=== PATIENT | female | born 1950 | race Caucasian/White ===

== ENCOUNTER 2019-10-01 11:38 | Emergency (ER) | payer MEDICARE, OTHER, SELFPAY ==
[2019-10-01 11:53] VITALS: BP 196/83; PULSE 84; RESP 13; TEMP 36.8; O2SAT 99
--- NOTE | 2019-10-01 12:27 | ED_ITS ---
HPI - General Adult <DOLORES Mancini - Last Filed: 10/01/19 22:01> General Chief complaint: Hypertension Stated complaint: HIGH BLOOD PRESSURE 186 Time Seen by Provider: 10/01/19 12:11 Source: patient Mode of arrival: Ambulatory Limitations: no limitations History of Present Illness HPI narrative: This is a pleasant 68-year-old female, nonsmoker, who presents to ED with elevated blood pressure. She reports she felt head pressure, shuttering feeling in my heart for last few days and decided to monitor her blood pressure. This morning BP was 180s/90s. She denies chest pain, weakness to limbs, speech difficulty, numbness, palpitation, history of AFib, breathing difficulty, or vision change. Patient takes amlodipine 5 mg and Synthroid 150 mcg daily. Patient reports similar symptoms had happened in the past. Patient currently states feels good now once arrived in emergency room and noticed on the monitor her blood pressures in 150s over 60s. Related Data Home Medications Medication Instructions Recorded Confirmed amlodipine 5 mg PO DAILY 10/01/19 10/01/19 levothyroxine [Synthroid] 150 mcg PO DAILY 10/01/19 10/01/19 Allergies Allergy/AdvReac Type Severity Reaction Status Date / Time anti inflammatory Allergy Unknown Uncoded 10/01/19 12:08 Review of Systems <DOLORES Mancini - Last Filed: 10/01/19 22:01> Review of Systems Narrative: General: Denies fever, chills, fatigue, malaise, sweats. HEENT: Denies sinus pain, ear pain, sore throat, difficulty swallowing, dizziness. Respiratory: Denies dyspnea, cough, wheezing, hemoptysis, sputum. Cardiovascular: See HPI Gastrointestinal: Denies nausea, vomiting, abdominal pain, diarrhea, constipation, melena. : Denies dysuria, frequency, incontinence, hematuria, urinary retention. Musculoskeletal: Denies weakness, joint pain or bony pain. Skin: Denies rash, skin lesions, or other. Neurologic: See HPI Psychiatric: No concerning psychosocial issues. 12-point review of systems is negative except for those stated above. Patient History <DOLORES Mancini - Last Filed: 10/01/19 22:01> Medical History Graves disease (Acute) Surgical History H/O hysterectomy with oophorectomy (Acute) History of foot surgery (Acute) Social History Smoking Status: Never smoker alcohol intake frequency: a few times a week Alcohol type: wine Substance Use Type: does not use Exam <DOLORES Mancini - Last Filed: 10/01/19 22:01> Narrative Exam Narrative: GEN: Alert, oriented x 3, well appearing and nourished, and in no acute distress. Head: Normal cephalic, atraumatic. No scalp or temporal tenderness, palpable mass or rash. EYES: Pupils are equal, round, and reactive to light and accommodation. Extr aocular muscles are intact bilaterally. There is no subconjunctival hemorrhage, exudate and sclera non-icteric. ENT: Bilateral auditory canals and tympanic membranes clear. Hearing grossly intact. Nose without bleeding, purulent discharge, septal hematoma or deviation. Turbinate without erythema or swelling. Facial sinuses nontender to palpate. Mucous membrane moist, no mucosal lesion. Throat without erythema, tonsillar hypertrophy or exudate. Uvula in midline, airway patent. Neck: Trachea in midline. No JVD, non-tender without lymphadenopathy. No masses or thyroid megaly. Supple, non-tender and no meningeal signs. CARDIAC: Normal regular rate and rhythm without murmurs, gallops, or rubs. No chest wall tenderness. No peripheral edema, cyanosis or pallor. Capillary refill is less than 2 seconds. No carotid bruits. RESPIRATORY: Lungs are cleat to auscultate bilaterally. No cough, wheezes, rales, or rhonchi. No stridor, respiratory distress, increase work of breathing, or accessary muscle used. ABD: Abdomen soft, nontender and non-distended. No guarding or rebound tenderness to palpate. Bowel sounds are normal in all 4 quadrants. There is no palpable masses or organomegaly. EXT: Full painless ROM of all extremities with no loss of sensation, strength, effusion or edema. SKIN: Warm, dry, normal color for patient. No erythema, lesions or rash. BACK: Nontender without deformity or crepitance. No flank tenderness. NEUROLOGICAL: Alert and oriented to place, time and person. No facial droops, dysphasia. CN II-XII intact. Strength and sensation symmetric and intact throughout. Cerebellar testing normal. PSYCHIATRIC: Good judgement and reason, without hallucinations, abnormal affect or abnormal behaviors during the examination. Initial Vital Signs Initial Vital Signs: Vital Signs Temperature 98.3 F 10/01/19 11:53 Pulse Rate 84 10/01/19 11:53 Respiratory Rate 13 10/01/19 11:53 Blood Pressure 196/83 H 10/01/19 11:53 Pulse Oximetry 99 10/01/19 11:53 <Samaria Mccray DO - Last Filed: 10/02/19 07:11> Initial Vital Signs Initial Vital Signs: Vital Signs Temperature 98.3 F 10/01/19 11:53 Pulse Rate 84 10/01/19 11:53 Respiratory Rate 13 10/01/19 11:53 Blood Pressure 196/83 H 10/01/19 11:53 Pulse Oximetry 99 10/01/19 11:53 Scores <DOLORES Mancini - Last Filed: 10/01/19 22:01> GCS Jared coma scale eye opening: Spontaneous [place] coma scale verbal response: Orientated Jared coma scale motor response: Obey commands [place] coma scale total score: 15 NIH Stroke Scale Level of Conciousness: Alert, keenly responsive Ask month/age: Answers both questions correctly. Open/close eyes, close hand: Performs both tasks correctly Best gaze horizontal: Normal Visual garcia: No visual loss Facial palsy: Normal symetrical movement Left arm drift: No drift for full 10 sec Right arm drift: No drift for full 10 sec Left leg drift: No drift for full 10 sec Right leg drift: No drift for full 10 sec Limb ataxia: Absent Sensory on face/arms/legs: Normal, no sensory loss Best language: No aphasia, normal Dysarthria: Normal Extinction or inattention: No abnormality Total NIH Stroke scale score: 0 Course <DOLORES Mancini - Last Filed: 10/01/19 22:01> Orders Ordered: ED Orders 10/01/19 12:25 Complete Blood Count AUTO DIFF Stat Comprehensive Metabolic Panel Stat Thyroid Stimulating Hormone Stat Troponin & CK Cardiac Panel Stat Vital Signs Vital signs: Vital Signs - 8 hr 10/01/19 11:53 Temperature 98.3 F Pulse Rate 84 Respiratory Rate 13 Blood Pressure 196/83 H Pulse Oximetry 99 <Samaira Mccray DO - Last Filed: 10/02/19 07:11> Orders Ordered: ED Orders 10/01/19 12:25 Complete Blood Count AUTO DIFF Stat Comprehensive Metabolic Panel Stat Thyroid Stimulating Hormone Stat Troponin & CK Cardiac Panel Stat Vital Signs Vital signs: Vital Signs - 8 hr 10/01/19 11:53 Temperature 98.3 F Pulse Rate 84 Respiratory Rate 13 Blood Pressure 196/83 H Pulse Oximetry 99 Medical Decision Making <Delvin Hill DOLORES - Last Filed: 10/01/19 22:01> Differential Diagnosis Differential Diagnosis: Elevated blood pressure, NSTEMI, Afib, Hyperthyroidism Medical Records Medical records reviewed: Yes I reviewed the patient's medical records. Lab Data Lab results reviewed: Yes I reviewed the patient's lab results. Result diagrams: 10/01/19 12:39 10/01/19 12:39 Labs: Lab Results 10/01/19 10/01/19 10/01/19 Range/Units 12:39 12:39 12:39 WBC 5.0 (4.5-11.0) X10^3/uL RBC 4.69 (4.0-5.2) X10^6/uL Hgb 14.0 (12.0-16.0) g/dL Hct 41.2 (36-46) % MCV 87.9 (80-100) fL MCH 29.9 (26-34) PG MCHC 34.0 (30-36) % RDW 13.9 (11.6-14.8) % Plt Count 162 (150-400) X10^3/uL Neut % (Auto) 65.4 (50-75) % Lymph % (Auto) 27.5 (25-40) % [place] % (Auto) 5.2 (3-14) % Eos % (Auto) 1.4 L (2-4) % Baso % (Auto) 0.5 (0-2) % Neut # (Auto) 3200 (3642-3201) /uL Lymph # (Auto) 1400 (2116-9504) /uL [place] # (Auto) 300 (0-900) /uL Eos # (Auto) 100 (0-450) /uL Baso # (Auto) 0 (0-100) /uL Sodium 142 (137-145) mmol/L Potassium 4.5 (3.4-5.1) mmol/L Chloride 106 (98-107) mmol/L Carbon Dioxide 27 (22-32) mmol/L BUN 15 (7-17) mg/dL Creatinine 0.60 (0.52-1.04) mg/dL Estimated GFR > 60.0 (>60) mL/min BUN/Creatinine Ratio 25.0 H (6-22) Glucose 110 (80-110) mg/dL Calcium 9.8 (8.4-10.2) mg/dL Magnesium (1.6-2.3) mg/dL Total Bilirubin 0.5 (0.2-1.3) mg/dL AST 28 (14-36) IU/L ALT 18 (<35) IU/L Alkaline Phosphatase 66 (38-126) U/L Total Creatine Kinase 109 (30-135) U/L CK-MB (CK-2) 1.03 (<2.37) ng/mL CK-MB (CK-2) Rel Index 0.9 L (1.5-5.0) % Troponin I < 0.012 (0.01-0.034) ng/mL Total Protein 7.5 (6.3-8.2) g/dL Albumin 4.7 (3.5-5.0) g/dL Globulin 2.8 (1.7-4.1) g/dL Albumin/Globulin Ratio 1.7 (1.0-2.8) TSH 0.88 (0.47-4.68) uIU/mL 10/01/19 Range/Units 12:39 WBC (4.5-11.0) X10^3/uL RBC (4.0-5.2) X10^6/uL Hgb (12.0-16.0) g/dL Hct (36-46) % MCV (80-100) fL MCH (26-34) PG MCHC (30-36) % RDW (11.6-14.8) % Plt Count (150-400) X10^3/uL Neut % (Auto) (50-75) % Lymph % (Auto) (25-40) % [place] % (Auto) (3-14) % Eos % (Auto) (2-4) % Baso % (Auto) (0-2) % Neut # (Auto) (3361-1463) /uL Lymph # (Auto) (9123-8526) /uL [place] # (Auto) (0-900) /uL Eos # (Auto) (0-450) /uL Baso # (Auto) (0-100) /uL Sodium (137-145) mmol/L Potassium (3.4-5.1) mmol/L Chloride (98-107) mmol/L Carbon Dioxide (22-32) mmol/L BUN (7-17) mg/dL Creatinine (0.52-1.04) mg/dL Estimated GFR (>60) mL/min BUN/Creatinine Ratio (6-22) Glucose (80-110) mg/dL Calcium (8.4-10.2) mg/dL Magnesium 2.3 (1.6-2.3) mg/dL Total Bilirubin (0.2-1.3) mg/dL AST (14-36) IU/L ALT (<35) IU/L Alkaline Phosphatase (38-126) U/L Total Creatine Kinase (30-135) U/L CK-MB (CK-2) (<2.37) ng/mL CK-MB (CK-2) Rel Index (1.5-5.0) % Troponin I (0.01-0.034) ng/mL Total Protein (6.3-8.2) g/dL Albumin (3.5-5.0) g/dL Globulin (1.7-4.1) g/dL Albumin/Globulin Ratio (1.0-2.8) TSH (0.47-4.68) uIU/mL ECG Data Attestation: I personally reviewed and interpreted this ECG as follows: Prior ECG tracings: not available for review Interpretation: Sinus rhythm rate at 70. Normal Model. Possible right ventricular conduction delay in V1 and V2. No ST elevation or depression. MDM Narrative Medical decision making narrative: This is a pleasant 68-year-old female who presents to ED who has known history of HTN and has been compliant with Amlodipine 5 mg daily with symptomatic high blood pressure this a.m. but had resolved after she arrived in ED. EKG was NS rate in 70. Cardiac enzymes were negative. Unremarkable CBC, unremarkable chemistry with low-normal magnesium level of 2.3. Normal TSH of was 0.88. The patient's blood pressure had improved while in ED as 132/70 with no symptoms without additional medication intervention. Findings were discussed with the patient and patient advised to follow with her primary care physician and to monitor her blood pressure regularly at the same time if elevated blood pressure persists. Return precautions were discussed with the patient. Patient verbalized understanding and agrees with the treatment plan. <Samaria Mccray, - Last Filed: 10/02/19 07:11> Lab Data Labs: Lab Results 10/01/19 10/01/19 10/01/19 Range/Units 12:39 12:39 12:39 WBC 5.0 (4.5-11.0) X10^3/uL RBC 4.69 (4.0-5.2) X10^6/uL Hgb 14.0 (12.0-16.0) g/dL Hct 41.2 (36-46) % MCV 87.9 (80-100) fL MCH 29.9 (26-34) PG MCHC 34.0 (30-36) % RDW 13.9 (11.6-14.8) % Plt Count 162 (150-400) X10^3/uL Neut % (Auto) 65.4 (50-75) % Lymph % (Auto) 27.5 (25-40) % [place] % (Auto) 5.2 (3-14) % Eos % (Auto) 1.4 L (2-4) % Baso % (Auto) 0.5 (0-2) % Neut # (Auto) 3200 (3823-6234) /uL Lymph # (Auto) 1400 (4181-2602) /uL [place] # (Auto) 300 (0-900) /uL Eos # (Auto) 100 (0-450) /uL Baso # (Auto) 0 (0-100) /uL Sodium 142 (137-145) mmol/L Potassium 4.5 (3.4-5.1) mmol/L Chloride 106 (98-107) mmol/L Carbon Dioxide 27 (22-32) mmol/L BUN 15 (7-17) mg/dL Creatinine 0.60 (0.52-1.04) mg/dL Estimated GFR > 60.0 (>60) mL/min BUN/Creatinine Ratio 25.0 H (6-22) Glucose 110 (80-110) mg/dL Calcium 9.8 (8.4-10.2) mg/dL Magnesium (1.6-2.3) mg/dL Total Bilirubin 0.5 (0.2-1.3) mg/dL AST 28 (14-36) IU/L ALT 18 (<35) IU/L Alkaline Phosphatase 66 (38-126) U/L Total Creatine Kinase 109 (30-135) U/L CK-MB (CK-2) 1.03 (<2.37) ng/mL CK-MB (CK-2) Rel Index 0.9 L (1.5-5.0) % Troponin I < 0.012 (0.01-0.034) ng/mL Total Protein 7.5 (6.3-8.2) g/dL Albumin 4.7 (3.5-5.0) g/dL Globulin 2.8 (1.7-4.1) g/dL Albumin/Globulin Ratio 1.7 (1.0-2.8) TSH 0.88 (0.47-4.68) uIU/mL 10/01/19 Range/Units 12:39 WBC (4.5-11.0) X10^3/uL RBC (4.0-5.2) X10^6/uL Hgb (12.0-16.0) g/dL Hct (36-46) % MCV (80-100) fL MCH (26-34) PG MCHC (30-36) % RDW (11.6-14.8) % Plt Count (150-400) X10^3/uL Neut % (Auto) (50-75) % Lymph % (Auto) (25-40) % [place] % (Auto) (3-14) % Eos % (Auto) (2-4) % Baso % (Auto) (0-2) % Neut # (Auto) (1484-8050) /uL Lymph # (Auto) (5098-7023) /uL [place] # (Auto) (0-900) /uL Eos # (Auto) (0-450) /uL Baso # (Auto) (0-100) /uL Sodium (137-145) mmol/L Potassium (3.4-5.1) mmol/L Chloride (98-107) mmol/L Carbon Dioxide (22-32) mmol/L BUN (7-17) mg/dL Creatinine (0.52-1.04) mg/dL Estimated GFR (>60) mL/min BUN/Creatinine Ratio (6-22) Glucose (80-110) mg/dL Calcium (8.4-10.2) mg/dL Magnesium 2.3 (1.6-2.3) mg/dL Total Bilirubin (0.2-1.3) mg/dL AST (14-36) IU/L ALT (<35) IU/L Alkaline Phosphatase (38-126) U/L Total Creatine Kinase (30-135) U/L CK-MB (CK-2) (<2.37) ng/mL CK-MB (CK-2) Rel Index (1.5-5.0) % Troponin I (0.01-0.034) ng/mL Total Protein (6.3-8.2) g/dL Albumin (3.5-5.0) g/dL Globulin (1.7-4.1) g/dL Albumin/Globulin Ratio (1.0-2.8) TSH (0.47-4.68) uIU/mL Discharge Plan Departure Patient Disposition: Home Clinical Impression: Hypertension Qualifiers: Hypertension type: unspecified Qualified Code(s): I10 - Essential (primary) hypertension Discharge Date/Time: 10/01/19 14:05 Instructions: DI for High Blood Pressure Activity Restrictions/Additional Instructions: You have been diagnosed with [resolved high blood pressure with symptoms as head pressure. The blood pressure decreased to 130s over 60s while in the ED. Her EKG looks good. Lab tests are unremarkable including cardiac enzymes, TSH, CBC, chemistry. Your magnesium is low borderline.]. What to do: *Take your medications as directed. Please continue with your daily blood pressure medication regimen *Follow up with your primary care provider in 2-3 days, call for an appointment. Let them know you were seen in the ED and that we asked you to be seen in follow up. *Return to ED if you have any new, worsening, or concerning symptoms, such as [chest pain, breathing difficulty, limb weakness, nausea vomiting, vision change, speech difficulty, balance problem, or any acute concerns]. Prescriptions: No Action amlodipine 5 mg tablet 5 mg PO DAILY RF: 0 levothyroxine [Synthroid] 150 mcg tablet 150 mcg PO DAILY RF: 0 Referrals: Maikel Powell DO [Non-Staff] -
[2019-10-01 12:30] VITALS: BP 157/74; PULSE 73; RESP 17; O2SAT 98
[2019-10-01 12:51] LABS: Add Manual Diff / Slide Review NO; Basophils Absolute Auto 0 /uL (0-100); Basophils Percent Auto 0.5 % (0-2); Eosinophils Absolute Auto 100 /uL (0-450); Eosinophils Percent Auto 1.4 % (2-4); Hematocrit 41.2 % (36-46); Lymphocytes Absolute Auto 1400 /uL (1100-4500); Lymphocytes Percent Auto 27.5 % (25-40); Mean Corpuscular Hemoglobin 29.9 PG (26-34); Mean Corpuscular Volume 87.9 fL (80-100); Monocytes Absolute Auto 300 /uL (0-900); Monocytes Percent Auto 5.2 % (3-14); Neutrophils Absolute Auto 3200 /uL (1500-7000); Neutrophils Percent Auto 65.4 % (50-75); Platelet Count 162 X10^3/uL (150-400); Red Blood Cell Count 4.69 X10^6/uL (4.0-5.2); Red Cell Distribution Width 13.9 % (11.6-14.8)
[2019-10-01 13:00] VITALS: BP 132/70; PULSE 67; RESP 17; O2SAT 98
[2019-10-01 13:06] LABS: Alanine Aminotransferase 18 IU/L (<35); Albumin 4.7 g/dL (3.5-5.0); Albumin Globulin Ratio 1.7 (1.0-2.8); Alkaline Phosphatase 66 U/L (38-126); Aspartate Aminotransferase 28 IU/L (14-36); Bilirubin Total 0.5 mg/dL (0.2-1.3); Blood Urea Nitrogen 15 mg/dL (7-17); Calcium 9.8 mg/dL (8.4-10.2); Carbon Dioxide 27 mmol/L (22-32); Chloride 106 mmol/L (98-107); Creatine Kinase 109 U/L (30-135); Estimated Glomerular Filt Rate > 60.0 mL/min (>60); Globulin 2.8 g/dL (1.7-4.1); Glucose 110 mg/dL (80-110); HEMOLYSIS < 15 (0-50); Potassium 4.5 mmol/L (3.4-5.1); Sodium 142 mmol/L (137-145); Total Protein 7.5 g/dL (6.3-8.2)
[2019-10-01 13:07] LABS: Magnesium 2.3 mg/dL (1.6-2.3)
[2019-10-01 13:17] LABS: Troponin I < 0.012 ng/mL (0.01-0.034)
[2019-10-01 13:30] VITALS: BP 140/59; PULSE 67; RESP 18; O2SAT 97
[2019-10-01 13:33] LABS: CKMB % Relative Index 0.9 % (1.5-5.0); Creatine Kinase MB 1.03 ng/mL (<2.37)
[2019-10-01 13:42] LABS: Thyroid Stimulating Hormone 0.88 uIU/mL (0.47-4.68)
== END 2019-10-01 14:05 | disposition home or self-care (01) ==
PROVIDERS: Emergency Provider Nurse Practitioner Family; Family Provider Family Medicine; PCP Family Medicine
DX: I10 Essential (primary) hypertension (principal)
CPT/HCPCS: 36415; 80053; 82550; 82553; 83735; 84443; 84484; 85025; 93005; 93010; 99283; 99284

== ENCOUNTER 2024-03-06 21:07 | Emergency (ER) | payer MEDICARE, OTHER, SELFPAY ==
[2024-03-06 21:11] VITALS: BP 208/100; PULSE 80; RESP 18; TEMP 36.4; O2SAT 100; BMI 25.2
--- NOTE | 2024-03-06 21:15 | DI.RAD.S_ITS ---
PROCEDURE: XR CHEST 1V INDICATIONS: chest pain TECHNIQUE: One view of the chest was acquired. COMPARISON: None. FINDINGS: Surgical changes and devices: None. Lungs and pleura: Lungs are clear. Lungs are lucent compatible with emphysema. No pleural effusions or pneumothorax. Mediastinum: Mediastinal contours appear normal. Heart size is normal. Bones and chest wall: No suspicious bony lesions. Overlying soft tissues appear unremarkable. IMPRESSION: No acute cardiopulmonary abnormality is seen. Dictated by: Adams Rowell M.D. on 03/06/2024 at 22:41 Approved by: Adams Rowell M.D. on 03/06/2024 at 22:41
[2024-03-06] MEDS: ASPIRIN 81 MG CHEW TAB 324 MG PO (21:20)
[2024-03-06 21:30] LABS: Add Manual Diff / Slide Review NO; Basophils Absolute Auto 0 /uL (0-100); Basophils Percent Auto 0.7 % (0-2); Eosinophils Absolute Auto 100 /uL (0-450); Hematocrit 39.1 % (36-46); Hemoglobin 13.2 g/dL (12.0-16.0); Lymphocytes Absolute Auto 2000 /uL (1100-4500); Lymphocytes Percent Auto 31.9 % (25-40); Mean Corpuscular HGB Conc 33.9 % (30-36); Mean Corpuscular Hemoglobin 29.3 PG (26-34); Mean Corpuscular Volume 86.6 fL (80-100); Monocytes Absolute Auto 400 /uL (0-900); Monocytes Percent Auto 6.8 % (3-14); Neutrophils Absolute Auto 3700 /uL (1500-7000); Neutrophils Percent Auto 58.6 % (50-75); Platelet Count 167 X10^3/uL (150-400); Red Blood Cell Count 4.51 X10^6/uL (4.0-5.2); Red Cell Distribution Width 13.9 % (11.6-14.8); White Blood Cell Count 6.3 X10^3/uL (4.5-11.0)
[2024-03-06 21:31] VITALS: PULSE 73; RESP 27
[2024-03-06 21:33] VITALS: BP 190/98; PULSE 77; RESP 17; O2SAT 98
--- NOTE | 2024-03-06 21:40 | ED.ARRPALP ---
HPI - Arrhythmia/Palpitations General Chief Complaint: Arrhythmia/Palpitations Stated Complaint: states heart is acting funkey Time Seen by Provider: 03/06/24 21:24 Source: patient Mode of arrival: Ambulatory History of Present Illness HPI narrative: Patient is a 73-year-old female is here for evaluation of palpitations. She states she has been feeling ill for the past 24-36 hours. No chest pain. No shortness of breath. No lightheadedness. She has a history of hypertension and has been off of her hypertensive medicines she was trying to control her high blood pressure by diet changes. She denies any lower extremity swelling. No abdominal pain or nausea or vomiting. Related Data Home Medications Medication Instructions Recorded Confirmed levothyroxine 150 mcg tablet 150 mcg PO DAILY 10/01/19 10/01/19 (Synthroid) Allergies Allergy/AdvReac Type Severity Reaction Status Date / Time anti inflammatory Allergy Unknown Uncoded 10/01/19 12:08 Review of Systems Review of Systems ROS Unobtainable: All systems reviewed & are unremarkable except as noted in HPI and below Patient History Medical History Graves disease Surgical History History of foot surgery H/O hysterectomy with oophorectomy Social History Smoking Status: Never smoker Smoking Status: Never smoker alcohol intake frequency: a few times a week Alcohol type: wine Substance Use Type: does not use Exam Initial Vital Signs Initial Vital Signs: Vital Signs Temperature 97.5 F L 03/06/24 21:11 Pulse Rate 80 03/06/24 21:11 Respiratory Rate 18 03/06/24 21:11 Blood Pressure 208/100 H 03/06/24 21:11 Pulse Oximetry 100 03/06/24 21:11 Oxygen Delivery Method Room Air 03/06/24 21:11 Const General: cooperative, comfortable and No ill appearing HENMT Head: normal to inspection and normocephalic Resp Effort & Inspection: normal respiratory effort Auscultation: clear to auscultation bilaterally Cardio Rate: regular rate Rhythm: regular rhythm Skin General: no rashes or lesions noted Neuro General: patient alert, patient awake, patient oriented x3 and moves all extremities Speech: speech normal Extrem General: normal to inspection and capillary refill normal Course Orders Ordered: ED Orders 03/06/24 21:15 XR chest 1V Stat EKG-12 Lead Stat 03/06/24 21:25 Complete Blood Count AUTO DIFF Stat Comprehensive Metabolic Panel Stat Lipase Stat Magnesium Stat PTT Partial Thromboplastin Rah Stat Prothrombin Time INR Stat Troponin & CK Cardiac Panel Stat Discontinued Medications Aspirin (Aspirin 81 Mg Chew Tab) 324 mg PO NOW ONE Stop: 03/06/24 21:16 Last Admin: 03/06/24 21:20 Dose: 324 mg Documented By: AB Vital Signs Vital signs: Vital Signs - 8 hr 03/06/24 21:11 03/06/24 21:31 03/06/24 21:33 Temperature 97.5 F L Pulse Rate 80 73 Respiratory Rate 18 27 H Blood Pressure 208/100 H 190/98 H Pulse Oximetry 100 Oxygen Delivery Method Room Air 03/06/24 21:33 03/06/24 22:00 03/06/24 22:00 Temperature Pulse Rate 77 71 Respiratory Rate 17 17 Blood Pressure 164/84 H Pulse Oximetry 98 98 Oxygen Delivery Method Room Air Room Air 03/06/24 22:30 03/06/24 22:31 03/06/24 22:31 Temperature Pulse Rate 62 61 Respiratory Rate 18 28 H Blood Pressure 167/78 H Pulse Oximetry 96 Oxygen Delivery Method Room Air MDM - Arrhythmia/Palpitations Lab Data Attestation: I reviewed the patient's lab results. 03/06/24 21:25 03/06/24 21:25 Labs: Lab Results 03/06/24 Range/Units 21:25 WBC 6.3 (4.5-11.0) X10^3/uL RBC 4.51 (4.0-5.2) X10^6/uL Hgb 13.2 (12.0-16.0) g/dL Hct 39.1 (36-46) % MCV 86.6 (80-100) fL MCH 29.3 (26-34) PG MCHC 33.9 (30-36) % RDW 13.9 (11.6-14.8) % Plt Count 167 (150-400) X10^3/uL Neut % (Auto) 58.6 (50-75) % Lymph % (Auto) 31.9 (25-40) % [place] % (Auto) 6.8 (3-14) % Eos % (Auto) 2.0 (2-4) % Baso % (Auto) 0.7 (0-2) % Neut # (Auto) 3700 (0216-4061) /uL Lymph # (Auto) 2000 (0368-8385) /uL [place] # (Auto) 400 (0-900) /uL Eos # (Auto) 100 (0-450) /uL Baso # (Auto) 0 (0-100) /uL PT 10.9 (9.4-12.5) SECONDS INR 1.0 (0.9-1.3) APTT 43 H (25.1-36.5) SECONDS Sodium 141 (137-145) mmol/L Potassium 3.6 (3.4-5.1) mmol/L Chloride 108 H (98-107) mmol/L Carbon Dioxide 28 (22-32) mmol/L BUN 19 H (7-17) mg/dL Creatinine 0.76 (0.52-1.04) mg/dL Estimated GFR > 60 (>60) mL/min BUN/Creatinine Ratio 25.0 H (6-22) Glucose 151 H (80-110) mg/dL Calcium 9.8 (8.4-10.2) mg/dL Magnesium 2.3 (1.6-2.3) mg/dL Total Bilirubin 0.4 (0.2-1.3) mg/dL AST 27 (14-36) IU/L ALT 17 (<35) IU/L Alkaline Phosphatase 68 (38-126) U/L Total Creatine Kinase 266 H (30-135) U/L Troponin I < 0.012 (0.01-0.034) ng/mL Total Protein 7.4 (6.3-8.2) g/dL Albumin 4.3 (3.5-5.0) g/dL Globulin 3.1 (1.7-4.1) g/dL Albumin/Globulin Ratio 1.4 (1.0-2.8) Lipase 104 (23-300) U/L Imaging Data Chest x-ray: Radiologist's Impresson: PROCEDURE: XR CHEST 1V INDICATIONS: chest pain TECHNIQUE: One view of the chest was acquired. COMPARISON: None. FINDINGS: Surgical changes and devices: None. Lungs and pleura: Lungs are clear. Lungs are lucent compatible with emphysema. No pleural effusions or pneumothorax. Mediastinum: Mediastinal contours appear normal. Heart size is normal. Bones and chest wall: No suspicious bony lesions. Overlying soft tissues appear unremarkable. IMPRESSION: No acute cardiopulmonary abnormality is seen. ECG Data Attestation: I personally reviewed and interpreted this ECG as follows: Interpretation: Sinus rhythm Ventricular rate of 74 Normal axis Normal QRS Normal QTC No ST T wave changes MDM Narrative Medical decision making narrative: Patient was sinus rhythm on the EKG however on the monitors she was having frequent PACs which does correspond to the symptoms that brought her here to the ER. She denies chest pain or shortness of breath. Chest x-ray is unremarkable. I did discuss these with her. She had prefer not to take any medications. Advised that she talk with her primary doctor about the indications for a Holter monitor to completely evaluate any other potential arrhythmias. Patient is safe for discharge home. She was given specific return precautions. She expressed understanding and agreement. Discharge Plan Departure Patient Disposition: Home Clinical Impression: Atrial premature contractions Instructions: DI for Palpitations Activity Restrictions/Additional Instructions: Continue to take all of your medications as directed. I do recommend that you contact your primary doctor for a follow-up to discuss the indications for a Holter monitor. Return to the emergency department for new or worsening symptoms. Prescriptions: No Action levothyroxine [Synthroid] 150 mcg tablet 150 mcg PO DAILY Referrals: Chiki Harding MD [Primary Care Provider] - Stand Alone Forms: Patient Portal/API
[2024-03-06 21:50] LABS: Prothrombin Time 10.9 SECONDS (9.4-12.5)
[2024-03-06 21:53] LABS: PTT Partial Thromboplastin Tim 43 SECONDS (25.1-36.5)
[2024-03-06 21:55] LABS: Alanine Aminotransferase 17 IU/L (<35); Albumin 4.3 g/dL (3.5-5.0); Albumin Globulin Ratio 1.4 (1.0-2.8); Alkaline Phosphatase 68 U/L (38-126); Aspartate Aminotransferase 27 IU/L (14-36); Bilirubin Total 0.4 mg/dL (0.2-1.3); Blood Urea Nitrogen 19 mg/dL (7-17); Calcium 9.8 mg/dL (8.4-10.2); Carbon Dioxide 28 mmol/L (22-32); Chloride 108 mmol/L (98-107); Creatine Kinase 266 U/L (30-135); Estimated Glomerular Filt Rate > 60 mL/min (>60); Globulin 3.1 g/dL (1.7-4.1); Glucose 151 mg/dL (80-110); HEMOLYSIS 24 (0-50); Lipase 104 U/L (23-300); Magnesium 2.3 mg/dL (1.6-2.3); Potassium 3.6 mmol/L (3.4-5.1); Sodium 141 mmol/L (137-145); Total Protein 7.4 g/dL (6.3-8.2)
[2024-03-06 22:00] VITALS: BP 164/84; PULSE 71; RESP 17; O2SAT 98
[2024-03-06 22:06] LABS: Troponin I < 0.012 ng/mL (0.01-0.034)
[2024-03-06 22:30] VITALS: PULSE 62; RESP 18; O2SAT 96
[2024-03-06 22:31] VITALS: BP 167/78; PULSE 61; RESP 28
== END 2024-03-06 22:35 | disposition home or self-care (01) ==
PROVIDERS: Emergency Provider Emergency Medicine; Family Provider Family Medicine; PCP Family Medicine
DX: I49.1 Atrial premature depolarization (principal); R07.9 Chest pain, unspecified
CPT/HCPCS: 36415; 71045; 80053; 82550; 83690; 83735; 84484; 85025; 85610; 85730; 93005; 93010; 99284

== ENCOUNTER 2025-06-01 15:36 | Emergency (ER) | payer MEDICARE, OTHER, SELFPAY ==
[2025-06-01] VITALS (21 sets, daily range): BP systolic 124–222; BP diastolic 58–99; PULSE 64–113; RESP 16–32; TEMP 36.4; O2SAT 95–99; BMI 23.9
[2025-06-01] MEDS: EPINEPHrine 1 MG/ML 0.3 MG IM (16:00)
[2025-06-01] MEDS: diphenhydrAMINE 50 MG/ML VIAL IV (16:01)
[2025-06-01] MEDS: FAMOTIDINE 20 MG/2 ML VIAL IV (16:02)
[2025-06-01 16:09] LABS: Add Manual Diff / Slide Review NO; Hematocrit 40.1 % (36-46); Hemoglobin 13.6 g/dL (12.0-16.0); Lymphocytes Absolute Auto 1800 /uL (1100-4500); Mean Corpuscular HGB Conc 34.0 % (30-36); Mean Corpuscular Hemoglobin 29.7 PG (26-34); Mean Corpuscular Volume 87.2 fL (80-100); Platelet Count 179 X10^3/uL (150-400)
[2025-06-01 16:22] LABS: Alanine Aminotransferase 17 IU/L (<35); Albumin 4.6 g/dL (3.5-5.0); Albumin Globulin Ratio 1.6 (1.0-2.8); Alkaline Phosphatase 57 U/L (38-126); Blood Urea Nitrogen 19 mg/dL (7-17); Calcium 9.5 mg/dL (8.4-10.2); Carbon Dioxide 30 mmol/L (22-32); Chloride 104 mmol/L (98-107); Estimated Glomerular Filt Rate 58 mL/min (>60); Globulin 2.9 g/dL (1.7-4.1); Glucose 138 mg/dL (70-99); HEMOLYSIS < 15 (0-50); Potassium 4.0 mmol/L (3.4-5.1); Sodium 141 mmol/L (137-145); Total Protein 7.5 g/dL (6.3-8.2)
--- NOTE | 2025-06-01 16:48 | EKG_ITS ---
[place] [address] [place] [id number] Test Date: 2025-06-01 Pat Name: Taisha Solis Department: [facility] Room: Gender: Female Party Chief: SHAWN : 1950 Requested By: Order Number: [id number] Reading MD: Rene Gay MD Measurements Intervals [place] Rate: 90 P: 67 RI: 148 QRS: 29 QRSD: 106 T: 29 QT: 378 QTc: 462 Interpretive Statements Normal sinus rhythm Incomplete right bundle branch block ST & T wave abnormality, consider inferior ischemia Electronically Signed On 06-02-2025 7:43:26 PDT by Rene Gay MD
--- NOTE | 2025-06-01 18:08 | ED_ITS ---
HPI - Allergic Reaction General Chief complaint: Allergic Reaction Stated complaint: stung, tongue swelling Time Seen by Provider: 06/01/25 18:02 Source: patient Mode of arrival: Ambulatory History of Present Illness HPI narrative: 74-year-old female with history of bee sting allergy, had sting 2 or 3 hours prior to arrival in the back of the neck, minimal swelling to the back of the neck but sensation of tongue swelling and airway closing. No hives or itching. No diarrhea or abdominal pain. No syncope or presyncope. No wheeze or significant shortness of breath. Related Data Home Medications ?Medication ?Instructions ?Recorded ?Confirmed levothyroxine 150 mcg tablet 150 mcg PO DAILY 10/01/19 10/01/19 (Synthroid) Previous Rx's ?Medication ?Instructions ?Recorded epinephrine 0.3 mg/0.3 mL 0.3 mg (0.3 mL) IM Q5-15M DC N 06/01/25 injection, auto-injector (EpiPen anaphylaxis #2 ea 2-Frederic) prednisone 20 mg tablet 40 mg (2 x 20 mg) PO DAILY 5 days 06/01/25 #10 tabs Allergies Allergy/AdvReac Type Severity Reaction Status Date / Time anti inflammatory Allergy Unknown Uncoded 10/01/19 12:08 Patient History Medical History (Updated 06/01/25 @ 18:22 by Hugo Jaquez MD) Graves disease Surgical History History of foot surgery H/O hysterectomy with oophorectomy Social History Smoking Status: Former smoker Smoking Status: Former smoker alcohol intake frequency: a few times a week Alcohol type: wine Exam Narrative Exam Narrative: GENERAL: Well-developed patient, in mild distress. HEAD: Atraumatic. Normocephalic. EYES: Pupils equal round and reactive. Extraocular motions intact. No scleral icterus. No injection or drainage. ENT: Nose without bleeding, purulent drainage. Throat without erythema, tonsillar hypertrophy or exudate. Airway patent. NECK: Trachea midline. Non tender CARDIOVASCULAR: Regular rate and rhythm without murmurs, gallops, or rubs. RESPIRATORY: Clear to auscultation. Breath sounds equal bilaterally. No wheezes, rales, or rhonchi. GASTROINTESTINAL: Abdomen soft, non-tender, nondistended. EXTREMITIES: No edema or joint tenderness. BACK: Nontender without deformity or crepitance. No flank tenderness. NEURO: AOx3. Motor functions grossly nonfocal. SKIN: No rash or erythema of visible areas Initial Vital Signs Initial Vital Signs: Vital Signs Temperature 97.6 F 06/01/25 15:46 Pulse Rate 76 06/01/25 15:46 Respiratory Rate 16 06/01/25 15:46 Blood Pressure 222/98 H 06/01/25 15:46 Pulse Oximetry 99 06/01/25 15:46 Oxygen Delivery Method Room Air 06/01/25 15:46 Course Orders Ordered: Discontinued Medications Diphenhydramine HCl (Diphenhydramine 50 Mg/Ml Vial) 50 mg IV NOW ONE Stop: 06/01/25 15:54 Last Admin: 06/01/25 16:01 Dose: 50 mg Documented By: LEATHA Epinephrine HCl (Epinephrine 1 Mg/Ml) 0.3 mg IM NOW ONE Stop: 06/01/25 15:54 Last Admin: 06/01/25 16:00 Dose: 0.3 mg Documented By: LEATHA Famotidine (Famotidine 20 Mg/2 Ml Vial) 20 mg IV NOW MGAY Last Admin: 06/01/25 16:02 Dose: 20 mg Documented By: LEATHA Methylprednisolone (Methylprednisolone 125 Mg/2 Ml Vial) 125 mg IV NOW ONE Stop: 06/01/25 15:54 Last Admin: 06/01/25 16:03 Dose: 125 mg Documented By: LEATHA Vital Signs Vital signs: Vital Signs - 8 hr 06/01/25 17:40 06/01/25 17:40 06/01/25 17:50 Pulse Rate 87 82 Respiratory Rate 18 30 H Blood Pressure 144/65 H Pulse Oximetry 96 98 06/01/25 17:50 06/01/25 18:00 06/01/25 18:00 Pulse Rate 82 Respiratory Rate 16 Blood Pressure 140/65 149/71 H Pulse Oximetry 97 06/01/25 18:10 06/01/25 18:10 06/01/25 18:20 Pulse Rate 67 75 Respiratory Rate 26 H 23 Blood Pressure 147/71 H Pulse Oximetry 97 97 06/01/25 18:20 06/01/25 18:30 06/01/25 18:30 Pulse Rate 64 Respiratory Rate 16 Blood Pressure 146/72 H 146/72 H Pulse Oximetry 98 06/01/25 18:40 06/01/25 18:40 06/01/25 18:50 Pulse Rate 64 Respiratory Rate 23 Blood Pressure 134/66 124/63 Pulse Oximetry 98 06/01/25 18:50 Pulse Rate 64 Respiratory Rate 25 H Blood Pressure Pulse Oximetry 98 MDM - Allergic Reaction Lab Data Attestation: I reviewed the patient's lab results. Lab results narrative: CBC, BNP, liver functions unremarkable. Glucose 138 noted. 06/01/25 15:55 06/01/25 15:55 Labs: Lab Results 06/01/25 Range/Units 15:55 WBC 6.3 (4.5-11.0) X10^3/uL RBC 4.60 (4.0-5.2) X10^6/uL Hgb 13.6 (12.0-16.0) g/dL Hct 40.1 (36-46) % MCV 87.2 (80-100) fL MCH 29.7 (26-34) PG MCHC 34.0 (30-36) % RDW 14.0 (11.6-14.8) % Plt Count 179 (150-400) X10^3/uL Neut % (Auto) 64.0 (50-75) % Lymph % (Auto) 28.0 (25-40) % [place] % (Auto) 5.0 (3-14) % Eos % (Auto) 2.2 (2-4) % Baso % (Auto) 0.8 (0-2) % Neut # (Auto) 4000 (9783-3894) /uL Lymph # (Auto) 1800 (5051-3930) /uL [place] # (Auto) 300 (0-900) /uL Eos # (Auto) 100 (0-450) /uL Baso # (Auto) 100 (0-100) /uL Sodium 141 (137-145) mmol/L Potassium 4.0 (3.4-5.1) mmol/L Chloride 104 (98-107) mmol/L Carbon Dioxide 30 (22-32) mmol/L BUN 19 H (7-17) mg/dL Creatinine 1.02 (0.52-1.04) mg/dL Estimated GFR 58 L (>60) mL/min BUN/Creatinine Ratio 18.6 (6-22) Glucose 138 H (70-99) mg/dL Calcium 9.5 (8.4-10.2) mg/dL Total Bilirubin 0.4 (0.2-1.3) mg/dL AST 28 (14-36) IU/L ALT 17 (<35) IU/L Alkaline Phosphatase 57 (38-126) U/L Total Protein 7.5 (6.3-8.2) g/dL Albumin 4.6 (3.5-5.0) g/dL Globulin 2.9 (1.7-4.1) g/dL Albumin/Globulin Ratio 1.6 (1.0-2.8) ECG Data Attestation: I personally reviewed and interpreted this ECG as follows: Interpretation: 1648, normal sinus rhythm with rate of 90, incomplete right bundle branch block. DC 148, QRS 106, QTC 462. MDM Narrative Medical decision making narrative: 74-year-old female with bee sting allergy, has no advocate or EpiPen on her own person, had sting to the back of the neck earlier today, with some tongue swelling upper airway closure like symptoms, given IV Solu-Medrol and Benadryl and Pepcid, IM dose of epinephrine. Symptoms improved. We will observe an additional hour. Consider discharge with EpiPen, also prescription for prednisone next few days. Encouraged to have future supply of Diana kit that might include EpiPen and Benadryl and prednisone in his Ziploc bag or some other way to gather appropriate meds if she has similar event remote from care in the future. Prescription sent to her pharmacy. Further observed, stable/improved. No obvious recurrence of symptoms. Prescription given for EpiPen, also for further prednisone next few days. Advised to take [id number] Benadryl next few days. Advised carrying and a kit with epinephrine and prednisone and Benadryl in Ziploc bag to be carried with her, if she has bee sting while remote from [facility]. Return precautions discussed. Discharge Plan Departure Patient Disposition: Home Clinical Impression: Allergy to bee sting, History of bee sting allergy Activity Restrictions/Additional Instructions: Sting sensation back of the neck, history of bee sting allergy. Tongue swelling symptoms. Improved after IV Solu-Medrol steroid, IV Benadryl antihistamine, IV Pepcid antihistamine, and intramuscular injection of epinephrine. We observed you for additional time, your symptoms rapidly improved and did not seem to recur. We will send prescription for further steroid prednisone to take for the next few days. Take [id number] Benadryl 50 mg 4 times daily in the next few days. Consider use of epinephrine pen to make your own anaphylaxis kit, we will send epinephrine kit prescription to your pharmacy, and an additional refill of prednisone, to stock with [id number] Benadryl, to use in his Ziploc bag collection for future use if you have severe reaction remote from emergency care. Return if any change worsening symptoms or any concerns. Prescriptions: New prednisone 20 mg tablet 40 mg PO DAILY 5 Days Qty: 10 0RF epinephrine [EpiPen 2-Frederic] 0.3 mg/0.3 mL auto-injector 0.3 mg IM Q5-15M PRN (Reason: anaphylaxis) Qty: 2 1RF Rx Instructions: do not exceed 3 doses per episode No Action levothyroxine [Synthroid] 150 mcg tablet 150 mcg PO DAILY Referrals: Chiki Harding MD [Primary Care Provider, Medical] Stand Alone Forms: Patient Portal/API
== END 2025-06-01 19:05 | disposition home or self-care (01) ==
PROVIDERS: Emergency Medicine; Emergency Provider Emergency Medicine; Family Provider Family Medicine; PCP Family Medicine
DX: T78.40XA Allergy, unspecified, initial encounter (principal)
CPT/HCPCS: 36415; 80053; 85025; 93005; 93010; 96372; 96374; 96375; 99284; J0165; J1200; J2919